=== PATIENT | female | born 1945 | race Caucasian/White ===

== ENCOUNTER 2023-08-16 11:15 | Emergency (ER) | payer MEDICARE, OTHER, SELFPAY ==
[2023-08-16 11:16] VITALS: BMI 18.9
[2023-08-16 11:19] VITALS: BP 124/88
[2023-08-16 11:43] LABS: % Basophils 0.8 % (0-2); % Eosinophils 2.5 % (0-6); % Immature Granulocytes 0.3 % (0-0.5); % Lymphocytes 20.6 % (20.5-51.1); % Monocytes 6.3 % (1.7-9.3); % Neutrophils 69.5 % (42.2-75.2); Absolute Basophils 0.1 10^3/uL (0-0.2); Absolute Eosinophils 0.2 10^3/uL (0-0.7); Absolute Lymphocytes 1.3 10^3/uL (1.2-3.4); Absolute Monocytes 0.4 10^3/uL (0.1-0.6); Absolute Neutrophils 4.4 10^3/uL (1.4-6.5); Hematocrit 44.9 % (37.0-47.0); Hemoglobin 14.7 g/dL (12.0-16.0); Mean Corp Hgb Conc. 32.7 g/dL (33.0-37.0); Mean Corpuscular Hgb 31.1 pg (27.0-31.0); Mean Corpuscular Volume 94.9 fL (81.0-99.0); Mean Platelet Volume 9.3 fL (7.4-10.4); Nucleated Red Blood Cells % 0 %; Platelet Count 240 10^3/uL (130-400); Red Blood Cell Count 4.73 10^6/uL (4.20-5.40); Red Cell Dist. Width 12.5 % (11.5-14.5); White Blood Cell Count 6.4 10^3/uL (4.8-10.8)
[2023-08-16 12:03] LABS: Urine Albumin Negative (Neg - Trace); Urine Bilirubin Negative (Negative); Urine Character Clear (Clear); Urine Color Yellow; Urine Glucose Negative (Negative); Urine Ketone Negative (Negative); Urine Leukocyte Negative (Negative); Urine Nitrite Negative (Negative); Urine Occult Blood Negative (Negative); Urine Urobilinogen Negative (Neg - 1+)
[2023-08-16 12:06] LABS: ALT (SGPT) 46 U/L (0-35); AST (SGOT) 41 U/L (14-36); Albumin 4.9 g/dl (3.5-5.0); Alkaline Phosphatase 96 U/L (38-126); Blood Urea Nitrogen 25 mg/dl (7-17); Calcium 10.2 mg/dl (8.4-10.2); Carbon Dioxide 32 mmol/L (22-30); Chloride 101 mmol/L (98-107); Glucose 58 mg/dl (70-99); Potassium 4.8 mmol/L (3.5-5.1); Sodium 139 mmol/L (135-145); Total Bilirubin 0.6 mg/dl (0.2-1.3); Total Protein 7.6 g/dl (6.3-8.2); eGFR > 60.00
--- NOTE | 2023-08-16 12:23 | ED.GENMED ---
History of Present Illness
General
Chief Complaint: Flank Pain
Source: patient
Exam Limitations: none
Time Seen by Provider: 08/16/23 12:04
Nursing documentation reviewed up to this point in time: agreed with
Travel History
Have you had any contact with someone who has COVID-19?: No
Do you have any symptoms of coronavirus? Fever > 100 degrees, chills, cough, shortness of breath, sore throat, loss of taste or smell, muscle aches, or headache?: No
History of Present Illness
History of Present Illness:
78 y/o F with h/o HLD, anxiety, kidney stones, hypothyroid
here with L back pain radiating to her left groin for the past few days
she says the pain is much worse than it was when it started af ew days ago
now worse with any movement, ambulation. she has not had any raidation of pain down leg, numbness/tingling/wekaness in the lg, incontience, urinary sypmtoms, fever.
she thinks this may be a kidney stone
she has had stones before
no redness/swelling to the hip
no trauma
h/o remote L total hip arthroplasty
Past History
Past History
ED Past Medical History: Hypothyroidism
ED Past Surgical History: Appendectomy
Social History
Tobacco: Non-smoker
Alcohol: None
Drug: None
Personal:
Living: with family
Employment: Employed
Phy Exam
Physical Exam
Physical Exam:
GENERAL: Alert, uncomfortable, suddenly
Neck: supple
CARDIAC: Regular rate and rhythm .
LUNGS: Clear breath sounds bilaterally, no acute respiratory distress, no wheezes/rales/rhonchi
ABDOMEN: Soft, normal bowel sounds, nondistended, pt has no tendenress, but is having colicky pain in her left lower quad and left back, no guarding, no rebound, neg bhatti's
back: no cva tenderness, no rash, no midline tenderness
no weakness, numbness
neg straight leg raise
NEUROLOGICAL: Alert and oriented, no focal neuro deficits
SKIN: Warm and dry, skin intact.
PSYCH: Normal and appropriate interaction.
Course
Orders/Labs/Results
Orders:
Orders
08/16/23 11:28
Complete Blood Count/With Diff Urgent
Comprehensive Metabolic Panel Urgent
Urinalysis Reflex To Culture Urgent
Date Specimen was Collected: 08/16/23
Time Specimen was Collected: 11:20
08/16/23 12:24
CT Abd/pel Without Iv Or Oral Urgent
Comment:
Reason For Exam: eft back pain radiating to left groin, h/o stone
0.9% Sodium Chloride 1000 ml [Nss] 1,000 ml IV BOLUS
Ketorolac [Toradol] 15 mg IV NOW STA
Morphine Sulfate 2 mg IV NOW STA
08/16/23 15:18
Vital Signs- Treatment ONCE
Frequency: Once
Abnormal Lab Results
08/16/23
11:28
MCH 31.1 H pg
(27.0-31.0)
MCHC 32.7 L g/dL
(33.0-37.0)
Carbon Dioxide 32 H mmol/L
(22-30)
BUN 25 H mg/dl
(7-17)
Glucose 58 L mg/dl
(70-99)
AST 41 H U/L
(14-36)
ALT 46 H U/L
(0-35)
08/16/23 11:28
08/16/23 11:28
Vital Signs
Initial and Last Documented VS:
Initial Vital Signs
Temp Pulse Resp BP Pulse Ox
97.5 F 66 17 124/88 99
08/16/23 11:19 08/16/23 11:19 08/16/23 11:19 08/16/23 11:19 08/16/23 11:19
Last Documented Vital Signs
Temp Pulse Resp BP Pulse Ox
97.5 F 65 15 120/85 99
08/16/23 11:19 08/16/23 15:19 08/16/23 15:19 08/16/23 15:19 08/16/23 15:19
MDM/Problems Addressed
Differential Diagnosis Includes:
kidney stone, msk pain, diverticulitis, radiculopathy/back pain
MDM/Problems Addressed:
78 y/o F with h/o kidney stones, hld, asthma
here with left sided pain in her lower back that radiates around to her LLQ reminding her of previous stones
worse with moement but also has pain that comes and goes
no nausea/vomiting/diarrhea, moved bowels yesterday
no fever, urinary sypmtoms
no radiation of pain in the leg
has a known renal stone on L kidney
on exam pt seems to bem ore positional with pain than having colic
no signficiatn tendneres bony back, hip, abdomen, flank,
nv intact
neg straight leg raise
apreicate mild hypoglycemia, pt didn't eat today but she was able to drink
urine neg
ct shows no stones, moderate to severe colonic stool burden
she says she is told this before with CT
but she doesn't feel constipated
perhaps her pain is mroe MSK coming from DDD in her back
regardless, no red flags
will recommend miralax for a few days
nsaids
tlenol
*Critical Care Note
Total Time (30-74mins, 75-104mins- exclusive of procedures): Not Applicable
ED Attending Note
-
Portions of this chart may have been created with voice recognition software.� Occasional wrong word or��sound alike� substitutions may have occurred due to the inherent limitations of voice recognition software.
Discharge Plan
Departure
Patient Disposition: Home (Routine Discharge)
Date of Disposition: 08/16/23
Time of Disposition: 15:15
Patient with high blood pressure during this ER visit?: No
Condition: Fair
Discharge Problem:
Constipation, Degenerative arthritis of lumbar spine
Instructions: Constipation, Adult (DC), Low Back Pain (DC)
Prescriptions:
No Action
paroxetine HCl 20 MG tablet
20 mg PO DAILY
levothyroxine 125 MCG tablet
125 mcg PO DAILY
mirtazapine 15 MG tablet
15 mg PO HS
valacyclovir 500 MG tablet
500 mg PO DAILY PRN (Reason: ,)
fluticasone propion-salmeterol [AirDuo RespiClick] 1 EACH aerosol powdr breath activated
1 puff IH BID
Phenazopyridine HCl
100 mg PO BID PRN (Reason: Cough)
Referrals:
Brent Turner Jr., DO [Family Provider] - Follow up in 2-3 days
Activity Restrictions/Additional Instructions:
Your pain probably is from your back. He had mild degenerative changes in your back. You could have some pinched nerves causing pain to wraparound into your hip. You should try ibuprofen 400 mg with food twice a day for the next 3 to 5 days.
Additionally you can use Tylenol 2 or 3 times a day as needed for pain.
You happened to be constipated on your CAT scan showing a large amount of stool in your colon. You should try either 1 dose of magnesium citrate and weight 48 hours before attempting a second dose or MiraLAX twice a day for the next 3 days to help
yourself empty your colon. Continue your Metamucil, you can increase this to twice a day if you need to. Make sure you are hydrated.
Watch for signs of infection, fever, redness, swelling, inability to walk, severe pain, numbness or tingling in your leg, incontinence of urine or bowel and return immediately for these as needed. Otherwise follow-up with your doctor
Interventions
Interventions:
*General Assessment Last Done: 08/16/23 13:34
*Neglect/Abuse Screening Last Done: 08/16/23 13:34
ED- Fall Risk Assessment Last Done: 08/16/23 12:47
*Nursing Disposition Last Done: 08/16/23 15:35
CA-Nbghkl-Mtasyiambw Assessment Last Done: 08/16/23 12:47
Discharge Date and Time
Discharge Date/Time: 08/16/23 15:36
Print Language: MAURITANIAN
[2023-08-16] MEDS: TORADOL 15 MG IV (12:42)
[2023-08-16] MEDS: NSS 1000 IV (12:42)
[2023-08-16] MEDS: MORPHINE SULFATE 2 MG IV (12:43)
[2023-08-16 15:19] VITALS: BP 120/85
== END 2023-08-16 15:36 | disposition home or self-care (01) ==
LOC: EMR 11:15
PROVIDERS: EMERGENCY PHYSICIAN Emergency Medicine; FAMILY PHYSICIAN Family Medicine
DX: K59.00 Constipation, unspecified (principal); M51.36 Other intervertebral disc degeneration, lumbar region; J45.909 Unspecified asthma, uncomplicated; N20.0 Calculus of kidney; E78.5 Hyperlipidemia, unspecified; E03.9 Hypothyroidism, unspecified; F41.9 Anxiety disorder, unspecified; Z87.442 Personal history of urinary calculi; Z96.642 Presence of left artificial hip joint
CPT/HCPCS: 99284; 96374; 96375; 96361; 74176; 80053; 81003; 85025

== ENCOUNTER → 2023-08-26 10:47 | Outpatient (REF) | payer MEDICARE, OTHER, SELFPAY | LOC: MRI 3T 10:47 | PROVIDERS: ATTENDING PHYSICIAN Family Medicine | DX: R25.1 Tremor, unspecified (principal) | CPT/HCPCS: 70551 ==

== ENCOUNTER → 2024-01-13 10:21 | Outpatient (REF) | payer MEDICARE, OTHER, SELFPAY | LOC: WDC 10:21 | PROVIDERS: ATTENDING PHYSICIAN Family Medicine; REFERRING PHYSICIAN Nurse Practitioner Adult Health | DX: Z13.820 Encounter for screening for osteoporosis (principal); Z78.0 Asymptomatic menopausal state; Z12.31 Encounter for screening mammogram for malignant neoplasm of breast; R05.3 Chronic cough | CPT/HCPCS: 71046; 77063; 77067; 77080 ==

== ENCOUNTER → 2025-01-19 11:14 | Outpatient (REF) | payer MEDICARE, OTHER, SELFPAY | LOC: WDC 11:14 | PROVIDERS: ATTENDING PHYSICIAN Family Medicine | DX: Z12.31 Encounter for screening mammogram for malignant neoplasm of breast (principal) | CPT/HCPCS: 77063; 77067 ==

== ENCOUNTER 2025-02-16 06:22 | Day surgery (SDC) | payer MEDICARE, OTHER, SELFPAY | END 2025-02-16 12:01 | disposition home or self-care (01) | LOC: GI 06:22 | PROVIDERS: ATTENDING PHYSICIAN Internal Medicine | DX: Z12.11 Encounter for screening for malignant neoplasm of colon (principal); D12.3 Benign neoplasm of transverse colon; K57.30 Diverticulosis of large intestine without perforation or abscess without bleeding; K56.2 Volvulus; K64.8 Other hemorrhoids; Z86.0100 Personal history of colon polyps, unspecified | CPT/HCPCS: 45380; 88305 ==